=== PATIENT | female | born 1970 | race Caucasian/White ===

== ENCOUNTER 2024-10-31 11:20 | Emergency (ER) | payer OTHER, SELFPAY ==
[2024-10-31] VITALS (7 sets, daily range): BP systolic 139–171; BP diastolic 88–103; BMI 23.0
--- NOTE | 2024-10-31 11:40 | EDRN ---
Pt OOB to BR at this time.
--- NOTE | 2024-10-31 11:53 | ED.GENMED ---
History of Present Illness
General
Chief Complaint: Chest Pain
Source: patient
Exam Limitations: none
Time Seen by Provider: 10/31/24 11:38
Nursing documentation reviewed up to this point in time: agreed with
History of Present Illness
History of Present Illness:
54-year-old female with past medical history of hypertension presents emergency department today with concerns of chest pain for the past 10 days patient reports that the pain radiates to her left shoulder. She states that this started when she got
arrested and entered half-way. Patient states that she feels this pain constantly and does not notice that it is worse with exertion. Patient states that she does not have a change in her symptoms with sitting up or leaning forward. Patient
previously used methamphetamines, fentanyl, and THC but denies any use of cocaine. Patient states that she is never had this pain before. Patient also experiences intermittent shortness of breath. She has not had any hemoptysis syncopal episodes.
Patient denies any family history of personal history of cardiac disease. She was given one nitroglycerin and one baby aspirin en route which she states did initially improve her symptoms but then her symptoms returned.
Past History
Past History
ED Past Medical History: Other (arthritis)
ED Past Surgical History: Orthopedic
Social History
Tobacco: Non-smoker
Alcohol: None
Drug: None
Personal:
Living: with family
Review of Systems
Review of Systems
All Other Systems: ROS reviewed and negative except as documented in HPI and ROS
Phy Exam
Physical Exam
Physical Exam:
General: Patient is well appearing and in no acute distress; non-toxic
Skin: Warm and dry, no rashes or lesions
Head: Normocephalic, atraumatic
Eyes: Sclera non-icteric. EOMs intact.
Cardiac: Patient tachycardic with occasional premature beats
Peripheral Vascular: No lower extremity swelling or edema
Pulm: Normal respiratory effort, no wheezes, rales, or rhonchi
Musculoskeletal: No tenderness palpation of the external chest wall
Neuro: CN II-XII intact, no focal neurologic deficits.
Psychiatric: Appropriate mood and affect.
Scores
Heart Score for Chest Pain Patients
STEMI patient?: No
History: Slightly or Non-Suspicious
ECG: Normal
Age: >45 - <65 years
Risk Factors: 1 or 2 Risk Factors
Troponin: </= Normal Limit
Heart Score for Chest Pain Patients: 2
Heart Score Risk: 2.5% MACE over next 6 weeks
Course
Orders/Labs/Results
Orders:
Orders
10/31/24 11:32
Electrocardiogram (*1) Urgent
Reason for Study: Chest Pain
Cardiac Monitoring- Treatment ONCE
EKG- Treatment ONCE
IV Insert/Care/Rem.- Treatment PRN
10/31/24 11:50
D-Dimer Urgent
10/31/24 11:54
Complete Blood Count/With Diff Urgent
Comprehensive Metabolic Panel Urgent
TSH Reflex To Free T4 Urgent
Comment: ADD ON
Troponin I Urgent
10/31/24 12:00
CR Chest - 2 Views Urgent
Comment:
Reason For Exam: chest pain
10/31/24 12:36
Add On- LAB Urgent
Tests Added?: TSH reflex T4
10/31/24 14:36
Ibuprofen [Motrin] 400 mg PO NOW STA
10/31/24 14:44
Electrocardiogram (*1) Urgent
Reason for Study: Chest Pain
EKG- Treatment ONCE
10/31/24 15:30
Troponin I Urgent
Abnormal Lab Results
10/31/24
11:54
MPV 10.5 H fL
(7.4-10.4)
Absolute Neuts (auto) 6.8 H 10^3/uL
(1.4-6.5)
Glucose 106 H mg/dl
(70-99)
10/31/24 11:54
10/31/24 11:54
Vital Signs
Initial and Last Documented VS:
Initial Vital Signs
BP
171/89
10/31/24 11:36
Last Documented Vital Signs
Temp Pulse Resp BP Pulse Ox
97.9 F 108 18 145/88 99
10/31/24 11:47 10/31/24 16:15 10/31/24 16:15 10/31/24 16:00 10/31/24 16:15
MDM/Problems Addressed
Differential Diagnosis Includes:
See below
MDM/Problems Addressed:
NUMBER AND COMPLEXITY OF PROBLEMS ADDRESSED AT THE ENCOUNTER
� Chronic conditions affecting care: HTN
� Acute Exacerbation and/or Progression of Chronic Illness:
� Differential Diagnosis includes: ACS, PVCs, PACs, PE, costochondritis
AMOUNT AND/OR COMPLEXITY OF DATA TO BE REVIEWED AND ANALYZED
� I performed an independent evaluation of and my interpretation is:
EKG: normal sinus rhythm rate 98, occasional PVCs
X-rays: no acute cardiopulmonary abnormality
Laboratory Studies: CBC and CMP unremarkable, troponin not concerning for myocardial injury, d-dimer negative
Other:
� Review of other/old records: reviewed previous discharge summary from 04/23/12, patient admitted for CHRISTINA from NSAID use
� Clinical information was obtained by an independent historian: n/a
� Prescriptions/Medications Considered but not given: none
� Further testing considered but not performed: n/a
RISK OF COMPLICATIONS AND/OR MORBIDITY OR MORTALITY OF PATIENT MANAGEMENT
� Social determinants of health affecting care: incarceration
� Discussion with other providers: reviewed case and treatment plan with my ER attendings
� Escalation of care including admission/observation vs risk of discharge considered:
54-year-old female presents emergency department with concerns of chest pain x10 days. She had 2 repeat troponins which did not show evidence of myocardial injury. Her ECG shows sinus tachycardia with occasional PVCs which could explain's patients
sensation of palpitations. Due to patients tachycardia in the setting of chest pain, d-dimer was sent off which was negative. Her CXR shows no evidence of pneumothorax, pneumonia. On multiple reassessment, patient complains of persistent
palpatations. According to EMS she had bigeminy, there is no evidence of ventricular bigeminys on our ECG and cardiac monitoring. She also has transient tachycardia. In light of symptomatic PVCs, will start on toprol once daily and arrange for
patient to have prompt cardiology follow up. Patient stable for discharge.
*Pulse Oximetry
Patient hypoxic: no
*Outreach Librarian Interpretation
Rate: tachycardiac
Interpretation: abnormal
Heart Rate: 101
Rhythm: sinus
*Critical Care Note
Total Time (30-74mins, 75-104mins- exclusive of procedures): Not Applicable
Update Note
Update Note:
On reassessment, patient states that her pain is now intermittent whereas for the past 10 days it has been constant. She notes no change in her symptoms with ibuprofen. Patient states that sensation of palpitations is still bothering her.
ED Attending Note
-
Portions of this chart may have been created with voice recognition software.� Occasional wrong word or��sound alike� substitutions may have occurred due to the inherent limitations of voice recognition software.
Discharge Plan
Departure
Patient Disposition: Home (Routine Discharge)
Date of Disposition: 10/31/24
Time of Disposition: 16:22
Patient with high blood pressure during this ER visit?: Yes
Condition: Good
Discharge Problem:
Chest pain, Palpitations
Instructions: Ventricular premature beats, Chest Pain DCA Follow Up
Prescriptions:
New
metoprolol succinate [Toprol XL] 25 mg tablet extended release 24 hr
25 mg PO DAILY Qty: 30 0RF
No Action
hydrocodone-acetaminophen 5 MG/500 MG tablet
1 tab PO .Q4-6HPRN PRN (Reason: PAIN) Qty: 20 0RF
trazodone 50 MG tablet
50 mg PO HS
Patient Comments:
1/2 tab to 2 tab
citalopram 20 MG tablet
20 mg PO DAILY
oxycodone 30 MG tablet
30 mg PO Q6H PRN (Reason: pain)
Morphine Sulfate
1 cap PO BID PRN (Reason: chronic pain)
Patient Comments:
80 mg ?
Referrals:
Oseas Lane MD [Active] - Call in 1-3 days for appt
NONE,* [Family Provider] -
Activity Restrictions/Additional Instructions:
Metoprolol has been sent to your pharmacy. You can take one tablet once daily.
Please call the attached number so you can be evaluated by a agricultural commodities grader.
PLEASE RETURN TO THE EMERGENCY DEPARTMENT SHOULD YOU DEVELOP AN ACUTE WORSENING OF YOUR SYMPTOMS, SHORTNESS OF BREATH, LIGHTHEADEDNESS, DIZZINESS, OR ANY OTHER SIGNS OR SYMPTOMS WORRISOME TO YOU.
Interventions
Interventions:
*Risk Screen - Suicide Last Done: 10/31/24 11:29
*General Assessment Last Done: 10/31/24 11:29
*Neglect/Abuse Screening Last Done: 10/31/24 11:29
ED- Fall Risk Assessment Last Done: 10/31/24 11:30
*ED COVID-19 Vaccine History Last Done: 10/31/24 11:31
*Nursing Disposition Last Done: 10/31/24 16:30
ED- Cardiac Assessment Last Done: 10/31/24 11:57
Discharge Date and Time
Discharge Date/Time: 10/31/24 16:30
Print Language: AMERICAN
--- NOTE | 2024-10-31 12:00 | EDRN ---
Leticia NICOLE in room w/ pt.
[2024-10-31 12:01] LABS: % Basophils 1.2 % (0-2); % Eosinophils 1.6 % (0-6); % Immature Granulocytes 0.3 % (0-0.5); % Lymphocytes 25.1 % (20.5-51.1); % Neutrophils 65.8 % (42.2-75.2); Absolute Basophils 0.1 10^3/uL (0-0.2); Absolute Eosinophils 0.2 10^3/uL (0-0.7); Absolute Lymphocytes 2.6 10^3/uL (1.2-3.4); Absolute Monocytes 0.6 10^3/uL (0.1-0.6); Absolute Neutrophils 6.8 10^3/uL (1.4-6.5); Hematocrit 39.1 % (37.0-47.0); Hemoglobin 13.2 g/dL (12.0-16.0); Mean Corp Hgb Conc. 33.8 g/dL (33.0-37.0); Mean Corpuscular Hgb 29.1 pg (27.0-31.0); Mean Corpuscular Volume 86.1 fL (81.0-99.0); Mean Platelet Volume 10.5 fL (7.4-10.4); Nucleated Red Blood Cells % 0 %; Platelet Count 360 10^3/uL (130-400); Red Blood Cell Count 4.54 10^6/uL (4.20-5.40); Red Cell Dist. Width 13.2 % (11.5-14.5); White Blood Cell Count 10.4 10^3/uL (4.8-10.8)
[2024-10-31 12:30] LABS: ALT (SGPT) 20 U/L (0-35); AST (SGOT) 22 U/L (14-36); Albumin 4.5 g/dl (3.5-5.0); Alkaline Phosphatase 79 U/L (38-126); Blood Urea Nitrogen 13 mg/dl (7-17); Calcium 9.7 mg/dl (8.4-10.2); Carbon Dioxide 26 mmol/L (22-30); Chloride 107 mmol/L (98-107); Estimated Creatinine Clearance 82 ml/min; Glucose 106 mg/dl (70-99); Potassium 3.7 mmol/L (3.5-5.1); Sodium 143 mmol/L (135-145); Total Bilirubin 0.2 mg/dl (0.2-1.3); Total Protein 6.6 g/dl (6.3-8.2); eGFR > 60.00
[2024-10-31 12:45] LABS: Troponin I 0.013 ng/ml
--- NOTE | 2024-10-31 13:18 | EDRN ---
Pt OOB to BR and back.
[2024-10-31 14:02] LABS: D-Dimer < 0.27 ug/mlFEU (0.00-0.50)
--- NOTE | 2024-10-31 14:14 | EDRN ---
Pt administered a boxed lunch at this time after this RN checked w/ H. Jasmyne POLLARD
--- NOTE | 2024-10-31 14:38 | EDRN ---
Leticia NICOLE in room w/pt.
--- NOTE | 2024-10-31 15:30 | EDRN ---
Repeat trop drawn and sent at this time.
[2024-10-31 15:36] LABS: TSH Reflex To Free T4 1.26 uIU/ml (0.47-4.68)
[2024-10-31 16:02] LABS: Troponin I 0.016 ng/ml
[2024-10-31] MEDS: MOTRIN 400 MG PO (16:03)
== END 2024-10-31 16:30 | disposition home or self-care (01) ==
LOC: EMR 11:20
PROVIDERS: Physician Assistant; EMERGENCY PHYSICIAN Emergency Medicine
DX: R07.89 Other chest pain (principal); R00.2 Palpitations; R06.02 Shortness of breath; I10 Essential (primary) hypertension; F15.11 Other stimulant abuse, in remission; M19.90 Unspecified osteoarthritis, unspecified site; F11.11 Opioid abuse, in remission; Z88.8 Allergy status to other drugs, medicaments and biological substances
CPT/HCPCS: 99284; 71046; 80053; 84443; 84484; 85025; 85379; 93005